=== PATIENT | female | born 1965 | race Caucasian/White ===

== ENCOUNTER 2016-07-02 01:37 | Emergency (ER) | payer OTHER ==
[2016-07-02 01:43] VITALS: BP 144/114; PULSE 87; RESP 16; TEMP 98.2; O2SAT 98
--- NOTE | 2016-07-02 02:16 | EDPHY ---
H & P Stated Complaint: rash on R shoulder/scalp/trunk/B wrists x3d, burning, itchy Time Seen by Provider: 07/02/16 02:01 HPI/ROS: HPI The patient presents with rash which is pruritic on her back, wrists, leg which has been present for the last 3 days and getting progressively worse. She has history of similar and gets urticaria from various things. Three days ago, she started on amoxicillin for a urinary tract infection. She does not have any shortness of breath, wheezing, vomiting. REVIEW OF SYSTEMS Constitutional: No fever, no chills. Eyes: No discharge. ENT: No sore throat. Cardiovascular: No chest pain, no palpitations. Respiratory: No cough, no shortness of breath. Gastrointestinal: No abdominal pain, no vomiting. Genitourinary: No hematuria. Musculoskeletal: No back pain. Skin: Positive for rash Neurological: No headache. PMHx:UTI Soc Hx:lives at home with her PHYSICAL General Appearance: Alert, no distress Eyes: Pupils equal and round no pallor or injection ENT, Mouth: Mucous membranes moist Respiratory: There are no retractions, lungs are clear to auscultation Cardiovascular: Regular rate and rhythm Gastrointestinal: Abdomen is soft and non-tender, no masses, bowel sounds normal Neurological: A&O, moves all extremities Skin: Warm and dry, diffuse urticarial rash on back and wrists Musculoskeletal: Neck is supple non tender Extremities: symmetrical, full range of motion Psychiatric: Patient is oriented X 3, there is no agitation Source: Patient Exam Limitations: No limitations - Personal History LMP (Females 10-55): Extended Cycle BCP/Inj Current Tetanus/Diphtheria Vaccine: Unsure Current Tetanus Diphtheria and Acellular Pertussis (TDAP): Unsure - Medical/Surgical History Hx Asthma: No Hx Chronic Respiratory Disease: No Hx Diabetes: No Hx Cardiac Disease: No Hx Renal Disease: No Hx Cirrhosis: No Hx Alcoholism: No Hx HIV/AIDS: No Hx Splenectomy or Spleen Trauma: No Other PMH: denies - Social History Smoking Status: Never smoked Constitutional: Initial Vital Signs Temperature (C) 36.8 C 07/02/16 01:38 Heart Rate 87 07/02/16 01:38 Respiratory Rate 16 07/02/16 01:38 Blood Pressure 144/114 H 07/02/16 01:38 O2 Sat (%) 98 07/02/16 01:38 O2 Delivery Mode Room Air Allergies/Adverse Reactions: No Known Allergies Allergy (Unverified 07/02/16 01:43) Home Medications: Medication Instructions Recorded Amitiza 07/02/16 Amoxicillin 07/02/16 Lutera-28 Tablet 07/02/16 Nitrofurantoin Monohyd/M-Cryst 100 mg PO BID #10 capsule 07/02/16 [Macrobid 100 mg Capsule] Medical Decision Making Differential Diagnosis: This is a 50-year-old female presents with rash for the last 3 days which is pruritic. It appears to be urticarial. She has no other signs of allergy. She did start on amoxicillin 3 days ago. I feel it is possible she is having an allergy to this. I was able to review her urine culture and that demonstrates bacteria sensitive to nitrofurantoin. I will start her on this. I have advised her to stop the amoxicillin. - Data Points Medications Given: Discontinued Medications Cetirizine HCl (Zyrtec) 10 mg PO EDNOW ONE Stop: 07/02/16 02:23 Last Admin: 07/02/16 02:35 Dose: 10 mg Departure - Departure Disposition: Home, Routine, Self-Care Clinical Impression: Urticaria Condition: Good Instructions: Urticaria (ED) Additional Instructions: Please stop taking the amoxicillin. You can take Zyrtec as needed for the itching. Please return if your worse in any way. Referrals: Aurea Jean Baptiste PA [Physician Senior [employer]] - As per Instructions Prescriptions: Nitrofurantoin Monohyd/M-Cryst [Macrobid 100 mg Capsule] 100 mg PO BID #10 capsule
[2016-07-02] MEDS ORDERED: CETIRIZINE 10 MG TAB PO ONE (02:22)
== END 2016-07-02 02:35 | disposition home or self-care (01) ==
DX: L50.9 Urticaria, unspecified (principal)

== ENCOUNTER → 2016-11-01 | Outpatient (CLI) | payer OTHER | LOC: FIMAGING 12:59 | PROVIDERS: ATTEND Physician Assistant Medical | DX: N63 Unspecified lump in breast (principal); N64.4 Mastodynia | CPT/HCPCS: G0204 ==